=== PATIENT | female | born 1970 | race Hispanic/Latino ===

== ENCOUNTER 2018-06-22 13:55 | Observation (INO) | payer SELFPAY ==
[2018-06-22 14:40] LABS: Absolute Lymphocytes (CBC) 1.8 K/uL (0.7-4.9); Absolute Monocytes 0.5 K/uL (0.1-1.3); Absolute Neutrophil 3.8 K/uL (1.8-8.0); Basophils % 0.5 % (0-1.3); Eosinophils % 1.8 % (0-4.4); Hematocrit 40.1 % (36.0-45.0); Lymphocytes % 29.1 % (15.3-44.8); MPV 9.1 fL (7.6-11.3); Monocytes % 7.5 % (3.3-12.3); RBC Red Blood Cell Count 4.47 M/uL (3.86-4.86)
[2018-06-22 14:41] LABS: Protime INR 0.84
--- NOTE | 2018-06-22 14:47 | EDPHYS ---
Physician Documentation [facility] Name: Sheri Javier Age: 48 yrs Sex: Female : 1970 Arrival Date: 06/22/2018 Time: 13:56 Bed 6 Private MD: ED Physician Otilio Frost HPI: 06/22 14:15 This 48 yrs old Female presents to ER via Ambulatory with complaints of Jaw jenifer Pain, Shoulder Pain, Chest Pain. 14:15 The patient or guardian complains of pain. right shoulder, right trapezius, right jenifer sternocleidomastoid, left shoulder, left trapezius and left sternocleidomastoid. 14:15 Context: The problem was sustained at home. Onset: The symptoms/episode began/occurred jenifer this morning, last night. Modifying factors: the symptoms are alleviated by nothing. The symptoms are aggravated by nothing. Associated signs and symptoms: The patient has no apparent associated signs or symptoms. The patient or guardian reports chest pain that is located primarily in the substernal area, anterior chest wall. RECENTERER: 13:59 LMP N/A - Irregular menses aa5 Historical: - Allergies: 13:59 No Known Allergies; aa5 - Home Meds: 13:59 None [Active]; aa5 - PMHx: 13:59 None; aa5 - PSHx: 13:59 None; aa5 - Immunization history:: Flu vaccine is not up to date. - Social history:: Smoking status: Patient/guardian denies using tobacco. - Ebola Screening: : No symptoms or risks identified at this time. - Family history:: not pertinent. ROS: 14:15 Constitutional: Negative for fever, chills, and weight loss, Eyes: Negative for injury, jenifer pain, redness, and discharge, ENT: Negative for injury, pain, and discharge, Neck: Negative for injury, pain, and swelling, Respiratory: Negative for shortness of breath, cough, wheezing, and pleuritic chest pain, Abdomen/GI: Negative for abdominal pain, nausea, vomiting, diarrhea, and constipation, Back: Negative for injury and pain, : Negative for injury, bleeding, discharge, and swelling, MS/Extremity: Negative for injury and deformity, Skin: Negative for injury, rash, and discoloration, Neuro: Negative for headache, weakness, numbness, tingling, and seizure, Psych: Negative for depression, anxiety, suicide ideation, homicidal ideation, and hallucinations, Allergy/Immunology: Negative for hives, rash, and allergies, Endocrine: Negative for neck swelling, polydipsia, polyuria, polyphagia, and marked weight changes, Hematologic/Lymphatic: Negative for swollen nodes, abnormal bleeding, and unusual bruising. 14:15 Cardiovascular: Positive for chest pain. Exam: 14:15 Constitutional: This is a well developed, well nourished patient who is awake, alert, jenifer and in no acute distress. Head/Face: Normocephalic, atraumatic. Eyes: Pupils equal round and reactive to light, extra-ocular motions intact. Lids and lashes normal. Conjunctiva and sclera are non-icteric and not injected. Cornea within normal limits. Periorbital areas with no swelling, redness, or edema. ENT: Nares patent. No nasal discharge, no septal abnormalities noted. Tympanic membranes are normal and external auditory canals are clear. Oropharynx with no redness, swelling, or masses, exudates, or evidence of obstruction, uvula midline. Mucous membranes moist. Neck: Trachea midline, no thyromegaly or masses palpated, and no cervical lymphadenopathy. Supple, full range of motion without nuchal rigidity, or vertebral point tenderness. No Meningismus. Chest/axilla: Normal chest wall appearance and motion. Nontender with no deformity. No lesions are appreciated. Cardiovascular: Regular rate and rhythm with a normal S1 and S2. No gallops, murmurs, or rubs. Normal PMI, no JVD. No pulse deficits. Respiratory: Lungs have equal breath sounds bilaterally, clear to auscultation and percussion. No rales, rhonchi or wheezes noted. No increased work of breathing, no retractions or nasal flaring. Abdomen/GI: Soft, non-tender, with normal bowel sounds. No distension or tympany. No guarding or rebound. No evidence of tenderness throughout. Back: No spinal tenderness. No costovertebral tenderness. Full range of motion. Skin: Warm, dry with normal turgor. Normal color with no rashes, no lesions, and no evidence of cellulitis. MS/ Extremity: Pulses equal, no cyanosis. Neurovascular intact. Full, normal range of motion. Neuro: Awake and alert, GCS 15, oriented to person, place, time, and situation. Cranial nerves II-XII grossly intact. Motor strength 5/5 in all extremities. Sensory grossly intact. Cerebellar exam normal. Normal gait. Psych: Awake, alert, with orientation to person, place and time. Behavior, mood, and affect are within normal limits. 14:15 Musculoskeletal/extremity: DVT Exam: No signs of deep vein thrombosis. no pain, no swelling, no tenderness, negative Homans' sign noted on exam, no appreciated bluish discoloration, no erythema, no increased warmth. Vital Signs: 13:59 BP 130 / 70; Pulse 78; Resp 18 S; Temp 98.3(TE); Pulse Ox 99% on R/A; Weight 89.36 kg aa5 (R); Height 5 ft. 5 in. (165.10 cm) (R); Pain 3/10; 14:50 BP 123 / 70 RA; Pulse 71; Resp 16; Pulse Ox 98% on R/A; la1 14:50 BP 128 / 71 LA; Pulse 75; Resp 16; la1 15:36 BP 123 / 74; Pulse 74; Resp 16; Pulse Ox 98% on R/A; la1 13:59 Body Mass Index 32.78 (89.36 kg, 165.10 cm) aa5 MDM: 14:07 Patient medically screened. [facility] 14:19 Data reviewed: vital signs, nurses notes, lab test result(s), EKG, radiologic studies, jenifer plain films. 06/22 14:07 Order name: Basic Metabolic Panel; Complete Time: 15:04 [facility] 06/22 14:07 Order name: CBC with Diff; Complete Time: 14:44 [facility] 06/22 14:07 Order name: LFT's; Complete Time: 15:04 [facility] 06/22 14:07 Order name: Magnesium; Complete Time: 15:04 [facility] 06/22 14:07 Order name: NT PRO-BNP; Complete Time: 15:04 [facility] 06/22 14:07 Order name: PT-INR; Complete Time: 14:44 [facility] 06/22 14:07 Order name: Troponin (emerg Dept Use Only); Complete Time: 15:04 [facility] 06/22 14:07 Order name: UDS [facility] 06/22 14:07 Order name: Lipase; Complete Time: 15:04 [facility] 06/22 14:15 Order name: D-Dimer; Complete Time: 15:04 [facility] 06/22 15:59 Order name: Urine Dipstick--Ancillary (enter results) 06/22 15:59 Order name: Urine --Ancillary (enter results) 06/22 16:07 Order name: Urine --Ancillary [facility] 06/22 16:07 Order name: Urine Dipstick-Ancillary [facility] 06/22 14:07 Order name: XRAY Chest (1 view) [facility] 06/22 14:07 Order name: EKG; Complete Time: 14:08 [facility] 06/22 14:07 Order name: Cardiac monitoring; Complete Time: 14:12 [facility] 06/22 14:07 Order name: EKG - Nurse/Tech; Complete Time: 14:12 [facility] 06/22 14:07 Order name: IV Saline Lock; Complete Time: 14:24 [facility] 06/22 14:07 Order name: Labs collected and sent; Complete Time: 14:24 [facility] 06/22 14:07 Order name: O2 Per Protocol; Complete Time: 14:12 [facility] 06/22 14:07 Order name: O2 Sat Monitoring; Complete Time: 14:12 [facility] 06/22 14:15 Order name: Bilateral blood pressure; Complete Time: 14:50 [facility] Administered Medications: 14:49 Drug: NS 0.9% 1000 ml Route: IV; Rate: 125 ml/hr; Site: right antecubital; la1 15:26 Follow up: IV Status: Infusion continued upon admission la1 14:50 Drug: Pepcid 20 mg Route: IVP; Site: right antecubital; la1 15:26 Follow up: Response: No adverse reaction la1 14:50 Drug: Aspirin Chewable Tablet 324 mg Route: PO; la1 15:26 Follow up: Response: No adverse reaction la1 15:35 Drug: Lopressor 25 mg Route: PO; la1 16:03 Follow up: Response: No adverse reaction la1 15:35 Drug: Lovenox 1 mg/kg Route: Sub-Q; Site: left lower abdomen; la1 16:02 Follow up: Response: No adverse reaction la1 Disposition: 06/22/18 14:46 Hospitalization ordered by Sarmad Genao for Observation. Preliminary diagnosis is Chest pain, unspecified. - Bed requested for Telemetry/MedSurg (observation). - Status is Observation. la1 - Condition is Stable. - Problem is new. - Symptoms have improved. UTI on Admission? No Signatures: Dispatcher [employer] EDAnay Sheppard RN RN Otilio Mcconnell MD MD cha Calderon, Audri, RN RN aa5 Butch Daniel RN RN la1 Corrections: (The following items were deleted from the chart) 15:26 14:46 Hospitalization Ordered by Sarmad Genao MD for Observation. Preliminary diagnosis dw is Chest pain, unspecified. Bed requested for Telemetry/MedSurg (observation). Status is Observation. Condition is Stable. Problem is new. Symptoms have improved. UTI on Admission? No. jenifer 16:42 15:26 06/22/2018 14:46 Hospitalization Ordered by Sarmad Genao MD for Observation. la1 Preliminary diagnosis is Chest pain, unspecified. Bed requested for Telemetry/MedSurg (observation). Status is Observation. Condition is Stable. Problem is new. Symptoms have improved. UTI on Admission? No. dw
--- NOTE | 2018-06-22 14:47 | ER ---
Nurse's Notes [facility] Name: Sheri Javier Age: 48 yrs Sex: Female : 1970 Arrival Date: 06/22/2018 Time: 13:56 Bed 6 Private MD: Diagnosis: Chest pain, unspecified Presentation: 06/22 13:58 Presenting complaint: Patient states: "I had chest pain last night that lasted a few aa5 minutes but today I feel soreness on my chest, my left shoulder, and jaw". Pt denies SOB, denies nausea/denies vomiting. Transition of care: patient was not received from another setting of care. Onset of symptoms was June 2018. Risk Assessment: Do you want to hurt yourself or someone else? Patient reports no desire to harm self or others. Initial Sepsis Screen: Does the patient meet any 2 criteria? No. Patient's initial sepsis screen is negative. Does the patient have a suspected source of infection? No. Patient's initial sepsis screen is negative. Care prior to arrival: None. 13:58 Method Of Arrival: Ambulatory aa5 13:58 Acuity: MARION 3 aa5 BAIT MAKER: 13:59 LMP N/A - Irregular menses aa5 Historical: - Allergies: 13:59 No Known Allergies; aa5 - Home Meds: 13:59 None [Active]; aa5 - PMHx: 13:59 None; aa5 - PSHx: 13:59 None; aa5 - Immunization history:: Flu vaccine is not up to date. - Social history:: Smoking status: Patient/guardian denies using tobacco. - Ebola Screening: : No symptoms or risks identified at this time. - Family history:: not pertinent. Screenin:53 Abuse screen: Denies threats or abuse. Nutritional screening: No deficits noted. la1 Tuberculosis screening: No symptoms or risk factors identified. Fall Risk None identified. Assessment: 14:51 General: Appears in no apparent distress. Behavior is calm, cooperative. Pain: la1 Complains of pain in chest and left sternocleidomastoid and left trapezius and left shoulder and right sternocleidomastoid and right trapezius and right shoulder Pain does not radiate. Pain currently is 4 out of 10 on a pain scale. Quality of pain is described as sore Pain began 1 day ago. Neuro: Level of Consciousness is awake, alert, obeys commands, Oriented to person, place, time, situation. Cardiovascular: Heart tones S1 S2 present Capillary refill < 3 seconds Patient's skin is warm and dry. Respiratory: Airway is patent Respiratory effort is even, unlabored, Respiratory pattern is regular, symmetrical, Breath sounds are clear bilaterally. GI: No signs and/or symptoms were reported involving the gastrointestinal system. : No signs and/or symptoms were reported regarding the genitourinary system. 15:25 Reassessment: Patient appears in no apparent distress at this time. No changes from la1 previously documented assessment. Patient and/or family updated on plan of care and expected duration. Pain level reassessed. Patient is alert, oriented x 3, equal unlabored respirations, skin warm/dry/pink. Vital Signs: 13:59 BP 130 / 70; Pulse 78; Resp 18 S; Temp 98.3(TE); Pulse Ox 99% on R/A; Weight 89.36 kg aa5 (R); Height 5 ft. 5 in. (165.10 cm) (R); Pain 3/10; 14:50 BP 123 / 70 RA; Pulse 71; Resp 16; Pulse Ox 98% on R/A; la1 14:50 BP 128 / 71 LA; Pulse 75; Resp 16; la1 15:36 BP 123 / 74; Pulse 74; Resp 16; Pulse Ox 98% on R/A; la1 13:59 Body Mass Index 32.78 (89.36 kg, 165.10 cm) aa5 ED Course: 13:56 Patient arrived in ED. as 13:59 Triage completed. aa5 13:59 Arm band placed on. aa5 14:07 Otilio Frost MD is Attending Physician. jenifer 14:11 EKG done, by ED staff, reviewed by Otilio Frost MD. jb1 14:24 Initial lab(s) drawn, by hi, sent to lab. Inserted saline lock: 22 gauge in right jb1 antecubital area, using aseptic technique. Blood collected. 14:39 Butch Daniel, DEEJAY is Primary Nurse. la1 14:46 Sarmad Genao MD is Hospitalizing Provider. jenifer 14:52 XRAY Chest (1 view) In Process Unspecified. EDMS 14:53 Patient has correct armband on for positive identification. Allergy band placed. la1 licensed psychologist manager on. Pulse ox on. NIBP on. 14:53 Patient maintains SpO2 saturation greater than 95% on room air. la1 16:00 Urine collected: clean catch specimen, clear, francois colored. jb1 16:41 No provider procedures requiring assistance completed. Patient admitted, IV remains in la1 place. Administered Medications: 14:49 Drug: NS 0.9% 1000 ml Route: IV; Rate: 125 ml/hr; Site: right antecubital; la1 15:26 Follow up: IV Status: Infusion continued upon admission la1 14:50 Drug: Pepcid 20 mg Route: IVP; Site: right antecubital; la1 15:26 Follow up: Response: No adverse reaction la1 14:50 Drug: Aspirin Chewable Tablet 324 mg Route: PO; la1 15:26 Follow up: Response: No adverse reaction la1 15:35 Drug: Lopressor 25 mg Route: PO; la1 16:03 Follow up: Response: No adverse reaction la1 15:35 Drug: Lovenox 1 mg/kg Route: Sub-Q; Site: left lower abdomen; la1 16:02 Follow up: Response: No adverse reaction la1 Outcome: 14:46 Decision to Hospitalize by Provider. [facility] 16:41 Admitted to Med/surg accompanied by tech, via wheelchair. la1 16:41 Condition: stable 16:41 Instructed on the need for admit. 16:42 Patient left the ED. la1 Signatures: Dispatcher [employer] Gunner Sparrow jb1 Otilio Frost MD MD cha Martinez, Amelia as Calderon, Audri, RN RN aa5 Butch Daniel RN RN la1
[2018-06-22 15:01] LABS: ALT/SGPT 19 U/L (12-78); AST/SGOT 23 U/L (15-37); Albumin 3.5 g/dL (3.4-5.0); Alkaline Phosphatase 98 U/L (45-117); BUN Blood Urea Nitrogen 11 mg/dL (7-18); Bicarbonate 26 mmol/L (21-32); Bilirubin Direct < 0.1 mg/dL (0-0.2); Bilirubin Total 0.2 mg/dL (0.2-1.0); Glucose Level 91 mg/dL (74-106); Lipase 167 U/L (73-393); Magnesium 1.8 mg/dL (1.8-2.4); NT PRO-BNP 159 pg/mL (<125); Potassium 3.8 mmol/L (3.5-5.1); Protein, Total 7.2 g/dL (6.4-8.2); Sodium Level 144 mmol/L (136-145); Troponin (Emerg Dept Use Only) < 0.02 ng/mL (0.0-0.045)
--- NOTE | 2018-06-22 15:36 | RAD REPORT ---
EXAM DESCRIPTION: RAD - Chest Single View - 06/22/2018 2:51 pm CLINICAL HISTORY: Chest pain COMPARISON: None. TECHNIQUE: AP portable chest image was obtained 1439 hours . FINDINGS: Lungs are clear. Heart and vasculature are normal. No measurable pleural effusion and no p neumothorax. No acute bony abnormality seen. No acute aortic findings suspected. IMPRESSION: No acute cardiopulmonary process.
[2018-06-22] MEDS ORDERED: METOPROLOL TAR 25 MG TAB ONE (15:41)
[2018-06-22] MEDS ORDERED: ENOXAPARIN 80 MG/0.8 ML SQ ONE (15:42)
[2018-06-22 16:07] LABS: Urine Blood 1+ (NEG); Urine Glucose NEGATIVE (NEG); Urine Protein NEGATIVE (NEG); Urine pH 7.5 (5.0-7.0)
[2018-06-22 16:19] LABS: Barbiturates NEGATIVE (NEGATIVE); Benzodiazepines NEGATIVE (NEGATIVE); Cocaine NEGATIVE (NEGATIVE); METHAMPHETAM NEGATIVE (NEGATIVE); Methadone NEGATIVE (NEGATIVE); Opiates NEGATIVE (NEGATIVE); Phencyclidine NEGATIVE (NEGATIVE); THC Cannibis NEGATIVE (NEGATIVE)
--- NOTE | 2018-06-22 16:27 | P.HP ---
Certification for Inpatient Patient admitted to: Observation With expected LOS: <2 Midnights Practitioner: I am a practitioner with admitting privileges, knowledge of patient current condition, hospital course, and medical plan of care. Services: Services provided to patient in accordance with Admission requirements found in Title 42 Section 412.3 of the Code of Federal Regulations Patient History Date of Service: 06/22/18 Reason for admission: Chest pain History of Present Illness: This is a 48-year-old female with no past medical history admitted for chest pain. Per patient, she had an episode of chest pain last night that lasted for 5 min. Pain started at rest. She describes a sharp substernal pain that resolved spontaneously. Then she woke up and stated that her chest was sore along with her left shoulder. Patient states that there is no radiation, alleviating or exacerbating factors. She denies any smoking history, has no past medical history, does not take any medications for denies any drug usage. She states that she is no family history of early coronary disease. In the ER, her vital signs were stable with blood pressure 130/70, heart rate of 78, respirations of 18 and she was afebrile. She was satting 99% on room air. Her BMI is 32.78. Her labs were unremarkable including troponin negative x1 and D-dimer that was normal. Her chest x-ray was normal. Her UDS was still pending. Her EKG was normal At the time of my exam, she was alert oriented x3, in no acute distress and was hemodynamically stable Allergies ibuprofen [From Advil] Allergy (Verified 06/22/18 16:43) Rash Home medications list reviewed: Yes Home Medications: NK [No Home Meds] 06/22/18 - Past Medical/Surgical History Past Medical History: Patient denies medical history Past Surgical History: Patient denies surgical history - Social History Smoking Status: Never smoker Alcohol use: Yes CD- Drugs: No Review of Systems 10-point ROS is otherwise unremarkable Physical Examination - Physical Exam General: Alert, In no apparent distress, Oriented x3 HEENT: Atraumatic, PERRLA, Mucous membr. moist/pink, EOMI, Sclerae nonicteric Neck: Supple, 2+ carotid pulse no bruit, No LAD, Without JVD or thyroid abnormality Respiratory: Clear to auscultation bilaterally, Normal air movement Cardiovascular: Regular rate/rhythm, Normal S1 S2 Gastrointestinal: Normal bowel sounds, No tenderness Musculoskeletal: No tenderness Integumentary: No rashes Neurological: Normal gait, Normal speech, Normal strength at 5/5 x4 extr, Normal tone, Normal affect Lymphatics: No axilla or inguinal lymphadenopathy - Studies Laboratory Data (last 24 hrs) 06/22/18 14:20: PT 10.0, INR 0.84 06/22/18 14:20: WBC 6.1, Hgb 14.0, Hct 40.1, Plt Count 185 06/22/18 14:20: Sodium 144, Potassium 3.8, BUN 11, Creatinine 0.73, Glucose 91, Magnesium 1.8, Total Bilirubin 0.2, AST 23, ALT 19, Alkaline Phosphatase 98, Lipase 167 Assessment and Plan - Problems (Diagnosis) (1) Chest pain Current Visit: Yes Status: Acute (2) Obese Current Visit: Yes Status: Chronic Qualifiers: Obesity type: due to excess calories Obesity classification: adult class 1 (BMI 30 - 34.9) Serious obesity comorbidity presence: without serious comorbidity Body mass index: BMI 32.0-32.9 Qualified Code(s): E66.09 - Other obesity due to excess calories; Z68.32 - Body mass index (BMI) 32.0-32.9, adult - Plan Admit to floor with tele Chest pain guidelines: Beta-rosalind, aspirin and Plavix IV morphine and nitro as needed for pain Trend troponins Echo ordered, pending Oral Protonix DVT prophylaxis: Lovenox GI prophylaxis: None Diet: Heart healthy Disposition: Admit to floor with tele. Pending cardiac testing. Anticipate discharge home in the next 24 hrs. Discharge Plan: Home Plan to discharge in: 24 Hours - Advance Directives Does patient have a Living Will: No Does patient have a Durable POA for Healthcare: No
[2018-06-22] MEDS ORDERED: POTASSIUM CL SA 10 MEQ TAB PO ONE (16:41)
[2018-06-22] MEDS ORDERED: MAGNESIUM SULFATE 1 gm IVPB 1 GM/100 ML BAG IV ONE (16:42)
[2018-06-22] MEDS: NA CHLORIDE 0.9% 1,000 ML IV SCH (16:57)
[2018-06-22 17:29] VITALS: BMI 32.8
[2018-06-22] MEDS ORDERED: METOPROLOL TAR 25 MG TAB PO SCH (18:00)
[2018-06-22] MEDS ORDERED: ATORVASTATIN 40 MG TAB PO SCH (21:00)
[2018-06-23 02:20] VITALS: O2SAT 97
[2018-06-23] MEDS: NA CHLORIDE 0.9% 1,000 ML IV SCH (05:25)
--- NOTE | 2018-06-23 05:53 | EKG ---
Test Date: 2018-06-22 Test Time: 14:09:57 Range Master: JALIL MEASUREMENT RESULTS: Intervals: Rate: 73 LA: 160 QRSD: 82 QT: 368 QTc: 405 [place]: P: 63 LA: 160 QRS: 39 T: 41 INTERPRETIVE STATEMENTS: Normal sinus rhythm Normal ECG No previous ECG available for comparison Electronically Signed On 06-23-18 05:52:48 CDT by Ru Barcenas
[2018-06-23] MEDS ORDERED: METOPROLOL TAR 25 MG TAB PO SCH (06:00)
[2018-06-23] MEDS ORDERED: PANTOPRAZOLE 40MG TABLET PO SCH (06:30)
[2018-06-23 07:43] LABS: BUN Blood Urea Nitrogen 11 mg/dL (7-18); Bicarbonate 24 mmol/L (21-32); Glucose Level 83 mg/dL (74-106); HDL Cholesterol 37 mg/dL (40-60); LDL Cholesterol, Calculated 80 (<130); Magnesium 2.1 mg/dL (1.8-2.4); Potassium 4.3 mmol/L (3.5-5.1); Sodium Level 143 mmol/L (136-145)
[2018-06-23 07:53] LABS: Absolute Lymphocytes (CBC) 2.4 K/uL (0.7-4.9); Absolute Monocytes 0.4 K/uL (0.1-1.3); Absolute Neutrophil 2.9 K/uL (1.8-8.0); Basophils % 0.4 % (0-1.3); Hematocrit 40.8 % (36.0-45.0); Lymphocytes % 41.3 % (15.3-44.8); MPV 10.1 fL (7.6-11.3); Monocytes % 7.2 % (3.3-12.3); RBC Red Blood Cell Count 4.53 M/uL (3.86-4.86)
[2018-06-23] MEDS ORDERED: ASPIRIN 81 MG CHEWABLE TABLET PO SCH (09:00)
[2018-06-23] MEDS ORDERED: CLOPIDOGREL 75 MG TABLET PO SCH (09:00)
[2018-06-23] MEDS ORDERED: ENOXAPARIN 40 MG/0.4 ML SQ SCH (09:00)
--- NOTE | 2018-06-23 10:41 | P.SSS ---
Patient History Date of Service: 06/23/18 Reason for admission: Chest pain History of Present Illness: This is a 48-year-old female with no past medical history admitted for chest pain. Per patient, she had an episode of chest pain last night that lasted for 5 min. Pain started at rest. She describes a sharp substernal pain that resolved spontaneously. Then she woke up and stated that her chest was sore along with her left shoulder. Patient states that there is no radiation, alleviating or exacerbating factors. She denies any smoking history, has no past medical history, does not take any medications for denies any drug usage. She states that she is no family history of early coronary disease. In the ER, her vital signs were stable with blood pressure 130/70, heart rate of 78, respirations of 18 and she was afebrile. She was satting 99% on room air. Her BMI is 32.78. Her labs were unremarkable including troponin negative x1 and D-dimer that was normal. Her chest x-ray was normal. Her UDS was still pending. Her EKG was normal At the time of my exam, she was alert oriented x3, in no acute distress and was hemodynamically stable Allergies ibuprofen [From Advil] Allergy (Verified 06/22/18 16:43) Rash Home Medications: Pantoprazole [Protonix Tab*] 40 mg PO DAILYAC #30 tab 06/23/18 - Past Medical/Surgical History Has patient received pneumonia vaccine in the past: No Diabetic: No Past Medical History: Patient denies medical history Past Surgical History: Patient denies surgical history - Social History Smoking Status: Never smoker Alcohol use: Yes CD- Drugs: No Caffeine use: Yes Place of Residence: Home Review of Systems 10-point ROS is otherwise unremarkable Physical Examination - Vital Signs Temperature: 97.0 F Blood Pressure: 111/74 Pulse: 56 Respirations: 18 Pulse Ox (%): 100 - Physical Exam General: Alert, In no apparent distress, Oriented x3 HEENT: Atraumatic, PERRLA, Mucous membr. moist/pink, EOMI, Sclerae nonicteric Neck: Supple, 2+ carotid pulse no bruit, No LAD, Without JVD or thyroid abnormality Respiratory: Clear to auscultation bilaterally, Normal air movement Cardiovascular: Regular rate/rhythm, Normal S1 S2 Gastrointestinal: Normal bowel sounds, No tenderness Musculoskeletal: No tenderness Integumentary: No rashes Neurological: Normal gait, Normal speech, Normal strength at 5/5 x4 extr, Normal tone, Normal affect Lymphatics: No axilla or inguinal lymphadenopathy - Studies Laboratory Data (last 24 hrs) 06/22/18 14:20: PT 10.0, INR 0.84 06/22/18 14:20: WBC 6.1, Hgb 14.0, Hct 40.1, Plt Count 185 06/22/18 14:20: Sodium 144, Potassium 3.8, BUN 11, Creatinine 0.73, Glucose 91, Magnesium 1.8, Total Bilirubin 0.2, AST 23, ALT 19, Alkaline Phosphatase 98, Lipase 167 - Diagnosis (Problem(s)) (1) Chest pain Current Visit: Yes Status: Acute (2) Obese Current Visit: Yes Status: Chronic Qualifiers: Obesity type: due to excess calories Obesity classification: adult class 1 (BMI 30 - 34.9) Serious obesity comorbidity presence: without serious comorbidity Body mass index: BMI 32.0-32.9 Qualified Code(s): E66.09 - Other obesity due to excess calories; Z68.32 - Body mass index (BMI) 32.0-32.9, adult Treatment Summary: Patient was admitted for chest pain, that had resolved in the ER prior to arrival. ACS was ruled out with 3 negative troponins, normal EKG. She remained asymptomatic throughout the stay, hemodynamically stable. Her vital signs also remained stable along with her other labs. She was discharged home in a stable manner. A list of primary care clinics was provided to her so she could have outpatient follow up. Lifestyle modifications including diet and exercise were discussed with her. - Disposition Discharge Date: 06/23/18 Disposition: ROUTINE DISCHARGE Condition: GOOD Patient Discharge Instructions: Please follow up with a primary care clinic- a list been provided to you. It is very important for you to establish care with a physician which she can follow up with as an outpatient. Please return to the emergency room for worsening symptoms. Diet: AHA Activity: Ad federico Time Spent Managing Pts Care (In Minutes): 55
[2018-06-23 13:18] VITALS: BP 115/66; TEMP 97.9
== END 2018-06-23 14:20 | disposition home or self-care (01) ==
LOC: ER 13:55 → ERHOLD 15:03 → 4TH 16:10
PROVIDERS: ADMIT Family Medicine; ATTEND Family Medicine
DX: R07.9 Chest pain, unspecified (principal); E66.9 Obesity, unspecified; Z68.32 Body mass index [BMI] 32.0-32.9, adult; Z71.3 Dietary counseling and surveillance
CPT/HCPCS: 36415; 71045; 80048; 80061; 80076; 80307; 81003; 81025; 83690; 83735; 83880; 84484; 85025; 85379; 85610; 93005; 94760; 96361; 96372; 96374; 99285; G0378; J1650; J3475; J7030